=== PATIENT | female | born 1990 ===

== ENCOUNTER 2018-04-01 17:26 | Emergency (ER) | payer BC, MEDICAID, OTHER ==
[2018-04-01 17:26] VITALS: BMI 35.4
[2018-04-01 17:35] VITALS: RESP 16
[2018-04-01] MEDS ORDERED: Iohexol 240 (50 ml) PO ONE (18:26)
[2018-04-01] MEDS ORDERED: Sodium Chloride 0.9% 1,000 ML IV STA (18:26)
--- NOTE | 2018-04-01 18:35 | ED PDOC ---
HPI: Abdomen Time Seen by Provider: 04/01/18 18:20 Chief Complaint (Nursing): Abdominal Pain Chief Complaint (Provider): abdominal pain History Per: Patient History/Exam Limitations: no limitations Onset/Duration Of Symptoms: Days (x1 week) Current Symptoms Are (Timing): Still Present Location Of Pain/Discomfort: Epigastric Associated Symptoms: Nausea, Vomiting Additional Complaint(s): Divina Diop is a 27 year old female, s/p gastric sleeve placement x1 month ago, who presents to the emergency department for the evaluation of epigastric pain associated with nausea and vomiting onset for x1 week. Patient states she drank and ate more than advised last week and has had symptoms since then. She denies any blood in vomitus or in stool. No further medical complaints. PMD: Myranda Williamson Past Medical History Reviewed: Historical Data, Nursing Documentation, Vital Signs Vital Signs: Last Vital Signs Temp 98.1 F 04/01/18 17:33 Pulse 63 04/01/18 17:33 Resp 16 04/01/18 17:33 BP 110/70 04/01/18 17:33 Pulse Ox 99 04/01/18 18:37 - Medical History PMH: Asthma, Depression Denies: Chronic Kidney Disease - Surgical History Other surgeries: gastric sleeve - Family History Family History: States: Unknown Family Hx - Immunization History Hx Tetanus Toxoid Vaccination: No Hx Influenza Vaccination: No (not UTD) Hx Pneumococcal Vaccination: No - Home Medications Home Medications: Ambulatory Orders Medication Instructions Recorded Albuterol 0.083% [Albuterol 0.083% 2.5 mg IH Q4 PRN #20 neb 02/28/16 Inhal Mine (2.5 mg/3 ml) UD] Docusate [Colace] 100 mg PO BID PRN 08/01/16 Ibuprofen [Motrin Tab] 800 mg PO TID PRN 08/01/16 oxyCODONE/Acetaminophen [Percocet 1 mg PO Q4 PRN 08/01/16 5/325 mg Tab] Nitrofurantoin Macrocrystals 100 mg PO BID #13 cap 08/05/16 [Macrobid] Famotidine [Pepcid] 20 mg PO Q12 #20 tab 04/01/18 - Allergies Allergies/Adverse Reactions: Allergies Allergy/AdvReac Type Severity Reaction Status Date / Time seasonal Allergy teary eyes Uncoded 08/01/16 09:13 Review of Systems ROS Statement: Except As Marked, All Systems Reviewed And Found Negative Gastrointestinal: Positive for: Nausea, Vomiting, Abdominal Pain (epigastric) Physical Exam - Reviewed Nursing Documentation Reviewed: Yes Vital Signs Reviewed: Yes - Physical Exam Appears: Positive for: Non-toxic, No Acute Distress Head Exam: Positive for: ATRAUMATIC, NORMAL INSPECTION, NORMOCEPHALIC Skin: Positive for: Normal Color, Warm, Dry Eye Exam: Positive for: Normal appearance, EOMI, PERRL Neck: Positive for: Painless ROM Cardiovascular/Chest: Positive for: Regular Rate, Rhythm. Negative for: Murmur Respiratory: Positive for: Normal Breath Sounds. Negative for: Respiratory Distress Gastrointestinal/Abdominal: Positive for: Tenderness (epigastric) Back: Positive for: Normal Inspection Extremity: Positive for: Normal ROM (upper and lower extremities). Negative for : Deformity, Swelling Neurologic/Psych: Positive for: Alert, Oriented. Negative for: Motor/Sensory Deficits - Laboratory Results Result Diagrams: 04/01/18 19:33 04/01/18 19:33 - ECG O2 Sat by Pulse Oximetry: 99 (RA) Pulse Ox Interpretation: Normal - Progress Re-evaluation Time: 23:18 Condition: Improved (No vomiting pain improved) Medical Decision Making Medical Decision Making: Time: 18:20 Initial Plan: --Abd Pelvis PO & IV Contrast [CT] --CMP --Lipase --Urine --Urine dipstick --CBC w/ differential --Sodium Chloride 1,000 ml IV 100 mls/hr --Omnipaque 240 50 ml PO --Pepcid 20 mg PO --Zofran ODT 4 mg PO --Reevaluation ----- Scribe Attestation: Documented by Deshaun Araujo, acting as a scribe for Roel Garibay MD. Provider Scribe Attestation: All medical record entries made by the Scribe were at my direction and personally dictated by me. I have reviewed the chart and agree that the record accurately reflects my personal performance of the history, physical exam, medical decision making, and the department course for this patient. I have also personally directed, reviewed, and agree with the discharge instructions and disposition. Disposition - Clinical Impression Clinical Impression: Abdominal pain - Patient ED Disposition Is Patient to be Admitted: No - Disposition Disposition: Routine/Home Disposition Time: 23:19 Condition: FAIR Prescriptions: Famotidine [Pepcid] 20 mg PO Q12 #20 tab Instructions: Gastritis Forms: [facility] (Greenlandic)
--- NOTE | 2018-04-01 18:35 | ED PDOC ---
HPI: Abdomen Time Seen by Provider: 04/01/18 18:20 Chief Complaint (Nursing): Abdominal Pain Past Medical History Vital Signs: Last Vital Signs Temp 98.1 F 04/01/18 17:33 Pulse 63 04/01/18 17:33 Resp 16 04/01/18 17:33 BP 110/70 04/01/18 17:33 Pulse Ox 99 04/01/18 17:33 - Medical History PMH: Asthma, Depression Denies: Chronic Kidney Disease - Immunization History Hx Tetanus Toxoid Vaccination: No Hx Influenza Vaccination: No (not UTD) Hx Pneumococcal Vaccination: No - Home Medications Home Medications: Ambulatory Orders Medication Instructions Recorded Albuterol 0.083% [Albuterol 0.083% 2.5 mg IH Q4 PRN #20 neb 02/28/16 Inhal Mine (2.5 mg/3 ml) UD] Docusate [Colace] 100 mg PO BID PRN 08/01/16 Ibuprofen [Motrin Tab] 800 mg PO TID PRN 08/01/16 oxyCODONE/Acetaminophen [Percocet 1 mg PO Q4 PRN 08/01/16 5/325 mg Tab] Nitrofurantoin Macrocrystals 100 mg PO BID #13 cap 08/05/16 [Macrobid] - Allergies Allergies/Adverse Reactions: Allergies Allergy/AdvReac Type Severity Reaction Status Date / Time seasonal Allergy teary eyes Uncoded 08/01/16 09:13 - ECG O2 Sat by Pulse Oximetry: 99 Disposition - Disposition
[2018-04-01] MEDS ORDERED: Iohexol 240 (50 ml) ONE (19:35)
[2018-04-01 19:52] LABS: BASO # 0.1 K/uL (0.0-0.2); BASO % 0.9 % (0.0-2.0); EOS # 0.3 K/uL (0.0-0.7); EOS % 5.3 % (0.0-4.0); HEMOGLOBIN 13.4 g/dL (12.0-16.0); LYMPH # 1.5 K/uL (1.0-4.3); LYMPH % 24.9 % (20.0-40.0); MEAN CELL VOLUME 83.3 fl (81.0-99.0); MEAN CORPUSCULAR HEMOGLOBIN 27.7 pg (27.0-31.0); MEAN CORPUSCULAR HGB CONC 33.2 g/dL (33.0-37.0); MEAN PLATELET VOLUME 8.4 fl (7.2-11.7); MONO # 0.4 K/uL (0.0-0.8); MONO % 7.4 % (0.0-10.0); NEUT # 3.6 K/uL (1.8-7.0); NEUT % 61.5 % (50.0-75.0); NRBC % 0.1 % (0.0-0.0); RBC 4.83 Mil/uL (3.80-5.20); RED CELL DISTRIBUTION WIDTH 16.8 % (11.5-14.5); WHITE BLOOD COUNT 5.9 K/uL (4.8-10.8)
[2018-04-01 20:15] LABS: ALB/GLOB RATIO 1.4 (1.0-2.1); ALBUMIN 4.3 g/dL (3.5-5.0); ALT/SGPT 59 U/L (9-52); AST/SGOT 55 U/L (14-36); BLOOD UREA NITROGEN 7 mg/dl (7-17); CALCIUM 9.5 mg/dL (8.4-10.2); GFR AFRICAN-AMERICAN > 60; GFR NON-AFRICAN AMERICAN > 60; LIPASE 87 U/L (23-300)
[2018-04-01] MEDS ORDERED: Iohexol 300 100 ML IJ ONE (21:01)
[2018-04-01] MEDS ORDERED: Sodium Chloride 0.9% 50 ML IV ONE (21:02)
[2018-04-02 00:18] VITALS: BP 138/74; PULSE 80; TEMP 98; O2SAT 97
--- NOTE | 2018-04-02 11:52 | CT ---
Date of service: 04/01/2018 PROCEDURE: CT Abdomen and Pelvis with contrast HISTORY: abd pain s/p gastric sleeve COMPARISON: None. TECHNIQUE: CT scan of the abdomen and pelvis was performed without administration of intravenous contrast. Oral contrast was not administered. Coronal and sagittal reformatted images were obtained. Contrast dose: 95 mL Omnipaque 300 Radiation dose: Total exam DLP = 844.19 mGy-cm. This CT exam was performed using one or more of the following dose reduction techniques: Automated exposure control, adjustment of the mA and/or kV according to patient size, and/or use of iterative reconstruction technique. FINDINGS: LOWER THORAX: The visualized lungs are clear. LIVER: Normal in size with diffuse fatty infiltration. No gross lesion or ductal dilatation. GALLBLADDER AND BILE DUCTS: No calcified gallstones. PANCREAS: Normal in size with homogeneous enhancement. No gross lesion or ductal dilatation. SPLEEN: Normal in size and appearance. ADRENALS: No discrete nodule. KIDNEYS AND URETERS: Normal in size with homogeneous enhancement. No hydronephrosis. No solid mass. VASCULATURE: No aortic aneurysm. BOWEL: There are postsurgical changes of gastric sleeve surgery. The small bowel loops are normal in caliber. The colon is unremarkable. No bowel dilatation or obstruction. APPENDIX: Normal appendix. PERITONEUM: No free fluid. No free air. LYMPH NODES: No enlarged lymph nodes. BLADDER: Grossly normal in appearance. REPRODUCTIVE: The uterus is normal in size. There is a 3.7 x 6.2 cm tubular cystic mass in the left ovary. BONES: No acute fracture. OTHER FINDINGS: None. IMPRESSION: No acute abdominal or pelvic abnormality. Status post gastric sleeve surgery, no bowel dilatation or obstruction. 3.7 x 6.2 cm cystic mass in the left ovary may represent a simple cyst or cystadenoma. Correlation with pelvic ultrasound and follow-up in 3-6 months interval is recommended to assess stability/ resolution. A preliminary report was provided by [employer].
== END 2018-04-02 00:17 | disposition home or self-care (01) ==
LOC: H.ER 17:26
DX: R10.13 Epigastric pain (principal); R11.2 Nausea with vomiting, unspecified
CPT/HCPCS: 74177; 80053; 81025; 83690; 85025; 87086; 87181; 96361; 96374; 99282; J7030; Q9966; Q9967

== ENCOUNTER 2018-07-17 20:17 | Emergency (ER) | payer MEDICAID ==
[2018-07-17 20:17] VITALS: BMI 35.4
[2018-07-17 20:31] VITALS: TEMP 97.8; O2SAT 100
[2018-07-17] MEDS ORDERED: Sodium Chloride 0.9% 1,000 ML IV SCH (21:00)
[2018-07-17 21:26] LABS: SQUAMOUS EPITHIAL 8 /hpf (0-5); URINE BACTERIA RARE (<OCC); URINE BILIRUBIN NEGATIVE (NEGATIVE); URINE BLOOD NEGATIVE (NEGATIVE); URINE CLARITY CLOUDY (Clear); URINE COLOR YELLOW (YELLOW); URINE GLUCOSE (UA) NEG (Normal); URINE HYALINE CAST 0-2 /hpf (0-2); URINE LEUKOCYTE ESTERASE TRACE Leu/uL (Negative); URINE PROTEIN NEGATIVE (NEGATIVE)
[2018-07-17 21:32] LABS: BASO % 0.4 % (0.0-2.0); EOS # 0.2 K/uL (0.0-0.7); EOS % 1.9 % (0.0-4.0); HEMOGLOBIN 13.7 g/dL (12.0-16.0); LYMPH # 1.4 K/uL (1.0-4.3); LYMPH % 14.6 % (20.0-40.0); MEAN CELL VOLUME 90.8 fl (81.0-99.0); MEAN CORPUSCULAR HEMOGLOBIN 30.2 pg (27.0-31.0); MEAN CORPUSCULAR HGB CONC 33.3 g/dL (33.0-37.0); MEAN PLATELET VOLUME 8.3 fl (7.2-11.7); MONO # 0.5 K/uL (0.0-0.8); MONO % 4.7 % (0.0-10.0); NEUT # 7.6 K/uL (1.8-7.0); NEUT % 78.4 % (50.0-75.0); RBC 4.54 Mil/uL (3.80-5.20); RED CELL DISTRIBUTION WIDTH 14.7 % (11.5-14.5)
[2018-07-17 21:37] LABS: WHITE BLOOD COUNT 9.6 K/uL (4.8-10.8)
[2018-07-17 21:39] LABS: PROTHROMBIN TIME 11.6 Seconds (9.8-13.1)
[2018-07-17 21:41] LABS: PARTIAL THROMBOPLASTIN TIME 31.3 Seconds (25.6-37.1)
[2018-07-17 21:43] LABS: ALB/GLOB RATIO 1.3 (1.0-2.1); ALBUMIN 4.5 g/dL (3.5-5.0); ALT/SGPT 73 U/L (9-52); AST/SGOT 129 U/L (14-36); BLOOD UREA NITROGEN 12 mg/dl (7-17); CALCIUM 9.3 mg/dL (8.4-10.2); GFR NON-AFRICAN AMERICAN > 60; LIPASE 69 U/L (23-300)
[2018-07-17 21:45] LABS: BARBITURATES, UR NEGATIVE (NEGATIVE); BENZODIAZEPINES, UR NEGATIVE (NEGATIVE); OPIATES, UR NEGATIVE (NEGATIVE); PHENCYCLIDINE, UR NEGATIVE (NEGATIVE)
--- NOTE | 2018-07-17 22:03 | ED PDOC ---
HPI: Abdomen Time Seen by Provider: 07/17/18 20:42 Chief Complaint (Nursing): Abdominal Pain Chief Complaint (Provider): Abdominal Pain History Per: Patient History/Exam Limitations: no limitations Onset/Duration Of Symptoms: Days (Months), Intermittent Episodes Additional Complaint(s): Patient is a 27 y/o female who is here for evaluation of intermittent abdominal pain since May 2018. Patient reports she was seen here and admitted at onset, where she says she had extensive testing which was unremarkable. Patient followed up with Dr. Eric GI, in the beginning of June and he states that no further intervention had to take place. Patient was given a prescription of Ursodiol which she has been taking with no improvement. Patient reports that the pain is unchanged from the past and is located in the periumbilical region and radiates into upper abdomen and chest. Patient states she had 1 episode of NB, NB vomiting in the ED. She reports she has intermittent nausea associated with the pain. Denies fever, diarrhea, urinary symptoms, or vaginal bleeding. Last normal menstrual period was 07/08. PMD: [place] LMP: 07/08/18 Last Menstral Period: 07/08 Past Medical History Reviewed: Historical Data, Nursing Documentation, Vital Signs Vital Signs: Last Vital Signs Temp 97.8 F 07/17/18 20:27 Pulse 66 07/17/18 20:27 Resp 16 07/17/18 20:27 BP 123/68 07/17/18 20:27 Pulse Ox 100 07/17/18 20:27 - Medical History PMH: Asthma, Depression, Pneumonia (2) - Surgical History Other surgeries: Gastric sleeve, hammer toe repair, Cyst removed from fallopian tubes - Family History Family History: States: Unknown Family Hx - Social History Current smoker - smoking cessation education provided: Yes (2 sticks/week) Alcohol: Social Drugs: Denies - Home Medications Home Medications: Ambulatory Orders Medication Instructions Recorded RX: Multivitamin [Multi-Vitamin 1 tab PO DAILY 05/18/18 Daily] Ondansetron ODT [Zofran ODT] 4 mg PO Q6 PRN #12 odt 07/18/18 - Allergies Allergies/Adverse Reactions: Allergies Allergy/AdvReac Type Severity Reaction Status Date / Time No Known Allergies Allergy Verified 07/17/18 20:27 Review of Systems ROS Statement: Except As Marked, All Systems Reviewed And Found Negative Constitutional: Negative for: Fever Gastrointestinal: Positive for: Nausea, Vomiting, Abdominal Pain. Negative for: Diarrhea Genitourinary Female: Negative for: Dysuria, Frequency, Incontinence, Vaginal Bleeding Physical Exam - Reviewed Nursing Documentation Reviewed: Yes Vital Signs Reviewed: Yes - Physical Exam Comments: GENERAL APPEARANCE: Patient is awake, alert, oriented x 3, in mild painful distress. SKIN: Warm, dry; (-) cyanosis. EYES: (-) conjunctival pallor, (-) scleral icterus. ENMT: Mucous membranes moist. Airway patent, (-) stridor. NECK: Supple, FROM (-) tenderness, (-) stiffness, (-) lymphadenopathy. CHEST AND RESPIRATORY: (-) rales, (-) rhonchi, (-) wheezes; breath sounds equal bilaterally. Respirations even and nonlabored. HEART AND CARDIOVASCULAR: (-) irregularity ABDOMEN AND GI: Soft (-) distention (-) guarding (-) rebound. Bowel sounds active x4; (+) tenderness in epigastric region, LUQ, and periumbilical area. (-) CVA tenderness. EXTREMITIES: (-) deformity NEURO AND PSYCH: Mental status as above; (-) focal findings. Gait: steady. Speech: clear. (-) facial asymmetry (-) aphasia. - Laboratory Results Result Diagrams: 07/17/18 21:20 07/17/18 21:20 Urine POC: Negative - ECG O2 Sat by Pulse Oximetry: 100 (RA) Pulse Ox Interpretation: Normal Medical Decision Making Medical Decision Making: Time: 20:55 Impression: Chronic abdominal pain, vomiting Initial Plan: CT Abd Pelvis CMP Drug screen Lactic Acid Lipase CBC w/ diff PTT Prothrombin time IV fluids Pepcid Toradol Acetaminophen Zofran U/A EKG: NSR @ 63bpm (-) ST elevation, QTc 423 2200 Utox: negative CBC grossly unremarkable. NO leukocytosis. CMP with slight elevation of LFTs. Values similar to past visits. Coag profile WNL U/A: no evidence of UTI Case discussed with ED MD Chavez who recommends CT evaluation at this time. CT abd/pel with IV contrast ordered. 2345 Tylenol PO ordered for additional pain control pending CT evaluation. 0120 CT Abdomen and Pelvis: Impression: Surgical changes of the stomach Distended gallbladder Mildly dilated biliary tree. Unchanged. Please correlate with LFTs. 3.6cm left ovarian cyst Small amount of free pelvic fluid Uncomplicated colonic diverticulosis. Signed by Radha Hardy MD ([facility]) Patient sleeping comfortably on re-evaluation. Upon provider waking patient up, patient reports improvement of symptoms. On exam, patient remains AAOx3, in no acute distress. Lungs clear to auscultation, cardiac RRR, abdomen soft, non-tender, repeat neuro exam shows no focal findings. VSS, stable for discharge. Lab/Diagnostic results d/w the patient in great detail. Diagnosis of chronic abdominal pain, vomiting d/w the patient. Based on history, exam and diagnostic results, plan will be for outpatient follow up with GI. Patient instructed to follow-up with pmd / referral provided / the clinic in 1- 2 days without fail. Advised to take medication as prescribed. Return to the emergency room at any time for any new or worsening symptoms. Patient states she fully agrees with and understands discharge instructions. States that she agrees with the plan and disposition. Verbalized and repeated discharge instructions and plan. I have given the patient opportunity to ask any additional questions. Scribe Attestation: Documented by Chan Matias acting as a scribe for Myranda Mcintyre PA-C. Provider Scribe Attestation: All medical record entries made by the Scribe were at my direction and personally dictated by me. I have reviewed the chart and agree that the record accurately reflects my personal performance of the history, physical exam, medical decision making, and the department course for this patient. I have also personally directed, reviewed, and agree with the discharge instructions and disposition. Disposition - Clinical Impression Clinical Impression: Chronic abdominal pain, Nausea and vomiting - Patient ED Disposition Is Patient to be Admitted: No Counseled Patient/Family Regarding: Studies Performed, Diagnosis, Need For Followup, Rx Given - Disposition Referrals: Robert Eric MD [Staff Provider] - Disposition: Routine/Home Disposition Time: 01:20 Condition: STABLE Additional Instructions: FOLLOW UP WITH GI SOON POSSIBLE. FOLLOW UP WITH BARIATRIC SURGEON SCHEDULED. CONTINUE MEDICATIONS PRESCRIBED FROM GI. The emergency medical care you received today was directed towards the acute presenting symptoms. If you were prescribed any medication, please fill it and give as directed. It may take several days for your symptoms to resolve. Return to the Emergency Department at any time if symptoms worsen, do not improve, or if any other problems arise. Please contact your doctor in 2 days for re-evaluation and follow up / or call one of the physicians/clinics you have been referred to that are listed on the Patient Visit Information form that is included in your discharge packet. Bring any paperwork you were given at discharge with you along with any medications to your follow up visit. Our treatment cannot replace ongoing medical care by a primary care provider (PCP) outside of the emergency department. Prescriptions: Ondansetron ODT [Zofran ODT] 4 mg PO Q6 PRN #12 odt PRN Reason: Nausea/Vomiting Instructions: Acute Abdomen (Belly Pain), Adult (DC), Nausea and Vomiting, Adult Forms: [employer] (Syrian) Print Language: BULGARIAN - POA Present On Arrival: None Results - Lab Results Lab Results: 07/17/18 07/17/18 07/17/18 21:20 21:20 21:20 WBC RBC Hgb Hct MCV MCH MCHC RDW Plt Count MPV Neut % (Auto) Lymph % (Auto) [place] % (Auto) Eos % (Auto) Baso % (Auto) Neut # (Auto) Lymph # (Auto) [place] # (Auto) Eos # (Auto) Baso # (Auto) PT 11.6 INR 1.0 APTT 31.3 Sodium 139 Potassium 4.0 Chloride 108 H Carbon Dioxide 22 Anion Gap 13 BUN 12 Creatinine 0.6 L Est GFR ( Amer) > 60 Est GFR (Non-Af Amer) > 60 Random Glucose 95 Lactic Acid 0.7 Calcium 9.3 Total Bilirubin 0.5 AST 129 H D ALT 73 H D Alkaline Phosphatase 80 Total Protein 7.9 Albumin 4.5 Globulin 3.4 Albumin/Globulin Ratio 1.3 Lipase 69 Urine Color Urine Clarity Urine pH Ur Specific [place] Urine Protein Urine Glucose (UA) Urine Ketones Urine Blood Urine Nitrate Urine Bilirubin Urine Urobilinogen Ur Leukocyte Esterase Urine RBC (Auto) Urine Microscopic WBC Ur Squamous Epith Cells Urine Bacteria Hyaline Casts Urine Opiates Screen Urine Methadone Screen Ur Barbiturates Screen Ur Phencyclidine Scrn Ur Amphetamines Screen U Benzodiazepines Scrn U Oth Cocaine Metabols U Cannabinoids Screen 07/17/18 07/17/18 07/17/18 21:20 21:05 21:05 WBC 9.6 D RBC 4.54 Hgb 13.7 Hct 41.2 MCV 90.8 D MCH 30.2 MCHC 33.3 RDW 14.7 H Plt Count 263 MPV 8.3 Neut % (Auto) 78.4 H Lymph % (Auto) 14.6 L [place] % (Auto) 4.7 Eos % (Auto) 1.9 Baso % (Auto) 0.4 Neut # (Auto) 7.6 H Lymph # (Auto) 1.4 [place] # (Auto) 0.5 Eos # (Auto) 0.2 Baso # (Auto) 0.0 PT INR APTT Sodium Potassium Chloride Carbon Dioxide Anion Gap BUN Creatinine Est GFR ( Amer) Est GFR (Non-Af Amer) Random Glucose Lactic Acid Calcium Total Bilirubin AST ALT Alkaline Phosphatase Total Protein Albumin Globulin Albumin/Globulin Ratio Lipase Urine Color Yellow Urine Clarity Cloudy Urine pH 5.0 Ur Specific [place] 1.030 Urine Protein Negative Urine Glucose (UA) Neg Urine Ketones Negative Urine Blood Negative Urine Nitrate Negative Urine Bilirubin Negative Urine Urobilinogen 2.0 H Ur Leukocyte Esterase Trace Urine RBC (Auto) 5 H Urine Microscopic WBC 3 Ur Squamous Epith Cells 8 H Urine Bacteria Rare Hyaline Casts 0-2 Urine Opiates Screen Negative Urine Methadone Screen Negative Ur Barbiturates Screen Negative Ur Phencyclidine Scrn Negative Ur Amphetamines Screen Negative U Benzodiazepines Scrn Negative U Oth Cocaine Metabols Negative U Cannabinoids Screen Negative
[2018-07-17 23:53] VITALS: BP 107/53; PULSE 54; RESP 17
[2018-07-17] MEDS ORDERED: Iohexol 300 100 ML IJ ONE (23:59)
[2018-07-17] MEDS ORDERED: Sodium Chloride 0.9% 50 ML IV ONE (23:59)
--- NOTE | 2018-07-18 08:05 | CT ---
Date of service: 07/18/2018 PROCEDURE: CT Abdomen and Pelvis without intravenous contrast HISTORY: abd pain, vomiting, hx gastric sleeve COMPARISON: None. TECHNIQUE: Technique. Contrast dose: Radiation dose: Total exam DLP = 690.85 mGy-cm. This CT exam was performed using one or more of the following dose reduction techniques: Automated exposure control, adjustment of the mA and/or kV according to patient size, and/or use of iterative reconstruction technique. FINDINGS: LOWER THORAX: Unremarkable. LIVER: Scattered areas of focal fatty infiltration. GALLBLADDER AND BILE DUCTS: Mildly distended gallbladder. No significant biliary dilatation. PANCREAS: Unremarkable. No gross lesion or ductal dilatation. SPLEEN: Unremarkable. ADRENALS: Unremarkable. No mass. KIDNEYS AND URETERS: Unremarkable. No hydronephrosis. No solid mass. VASCULATURE: Unremarkable. No aortic aneurysm. No aortic atherosclerotic calcification or mural plaque present. BOWEL: Status post bariatric surgery. No obstruction. No gross mural thickening. APPENDIX: Unremarkable. Normal appendix. PERITONEUM: Small amount of free fluid in the pelvis. LYMPH NODES: Unremarkable. No enlarged lymph nodes. BLADDER: Unremarkable. REPRODUCTIVE: 3.6 centimeter left ovarian cyst. BONES: No acute fracture. OTHER FINDINGS: None. IMPRESSION: Distended gallbladder. No biliary dilatation. 3.6 centimeter left ovarian cyst. Small amount of free from the pelvis.
== END 2018-07-18 01:42 | disposition home or self-care (01) ==
LOC: H.ER 20:17
DX: R11.2 Nausea with vomiting, unspecified (principal); R10.9 Unspecified abdominal pain; G89.29 Other chronic pain
CPT/HCPCS: 74177; 80053; 80324; 80345; 80346; 80349; 80353; 80358; 80361; 81003; 81025; 83605; 83690; 83992; 85025; 85610; 85730; 96361; 96374; 96375; 99284; J1885; J2405; J7030; Q9967